=== PATIENT | female | born 1945 | race Caucasian/White ===

== ENCOUNTER → 2020-11-09 | Outpatient (CLI) | payer MEDICARE, OTHER | LOC: HEART CORB 09:00 | DX: R03.0 Elevated blood-pressure reading, without diagnosis of hypertension (principal); I47.1 Supraventricular tachycardia; R00.2 Palpitations; I47.2 Ventricular tachycardia; Z86.79 Personal history of other diseases of the circulatory system; E78.5 Hyperlipidemia, unspecified; Z79.899 Other long term (current) drug therapy | CPT/HCPCS: 78452; 93306; A9502; J2785 ==